=== PATIENT | male | born 1980 | race Caucasian/White ===

== ENCOUNTER 2025-01-11 15:13 | Outpatient (CLI) | payer BC | END 2025-01-11 15:14 | disposition home or self-care (01) | LOC: SCSMRI 15:13 | PROVIDERS: ATTEND Family Medicine Sports Medicine | DX: S83.511A Sprain of anterior cruciate ligament of right knee, initial encounter (principal); M71.21 Synovial cyst of popliteal space [Baker], right knee; M25.461 Effusion, right knee; S83.281A Other tear of lateral meniscus, current injury, right knee, initial encounter; S83.241A Other tear of medial meniscus, current injury, right knee, initial encounter ==